=== PATIENT | male | born 1965 | race Two or more races ===

== ENCOUNTER 2018-02-14 15:57 | Emergency (ER) | payer OTHER ==
[~2018-02-14] VITALS: Ht 177.8 cm; Wt 98.0 kg
[2018-02-14 16:09] VITALS: BP 128/82
== END 2018-02-14 20:03 | disposition left against medical advice (07) ==
LOC: ER 16:03
DX: R51 Headache (principal); M54.2 Cervicalgia; Z53.21 Procedure and treatment not carried out due to patient leaving prior to being seen by health care provider; V47.9XXA Unspecified car occupant injured in collision with fixed or stationary object in traffic accident, initial encounter; Y93.89 Activity, other specified; Y92.89 Other specified places as the place of occurrence of the external cause; Y99.8 Other external cause status